=== PATIENT | female | born 1955 | race Caucasian/White ===

== ENCOUNTER → 2016-11-22 13:36 | Outpatient (CLI) | payer BC ==
[2012-08-14 10:26] VITALS: BMI 30.2
== END | disposition home or self-care (01) ==
LOC: D.MAMMO 09:30
DX: Z12.31 Encounter for screening mammogram for malignant neoplasm of breast (principal)

== ENCOUNTER → 2016-11-30 12:13 | Outpatient (CLI) | payer BC ==
[2012-08-14 10:26] VITALS: BMI 30.2
== END | disposition home or self-care (01) ==
LOC: D.US 12:13
DX: R92.8 Other abnormal and inconclusive findings on diagnostic imaging of breast (principal)

== ENCOUNTER → 2018-03-11 19:53 | Outpatient (CLI) | payer BC ==
[2012-08-14 10:26] VITALS: BMI 30.2
== END | disposition home or self-care (01) ==
LOC: D.MAMMO 09:15
DX: Z12.31 Encounter for screening mammogram for malignant neoplasm of breast (principal)

== ENCOUNTER 2019-04-24 09:00 | Outpatient (CLI) | payer BC ==
[2012-08-14 10:26] VITALS: BMI 30.2
== END 2019-04-24 10:00 | disposition home or self-care (01) ==
LOC: D.MAMMO 09:00
PROVIDERS: ATTEND Family Medicine
DX: Z12.31 Encounter for screening mammogram for malignant neoplasm of breast (principal)